=== PATIENT | male | born 2000 | race Caucasian/White ===

== ENCOUNTER 2023-01-10 20:26 | Emergency (ER) | payer OTHER, SELFPAY ==
[2023-01-10 20:28] VITALS: BP 126/62; PULSE 110; RESP 18; TEMP 36.8; O2SAT 99; BMI 27.0
--- NOTE | 2023-01-10 20:39 | EDS_ITS ---
HPI History of Present Illness Chief Complaint: Upper Extremity Injury Detail of Chief Complaint: Injury to right shoulder Informant: patient Narrative Narrative: Patient presents to the emergency department with complaint of injury to the right shoulder. Patient states that he was playing soccer when he fell onto his right shoulder. Patient felt a pop. He is right-hand dominant. Denies any other injuries. [facility] Medical History (Updated 01/10/23 @ 20:[address] Misael Nichole, DO) ACL injury tear Home Medications NK 01/10/23 [History Last Taken Unknown] Allergy/AdvReac Type Severity Reaction Status Date / Time No Known Allergies Allergy Verified 01/10/23 20:31 Social History Smoking Status: Never smoker ROS ROS ED Review of Systems ROS Unobtainable: other Constitutional Constitutional ED: Reports lethargy; Denies chills, fever(s), sweats or weight loss Eyes Eyes: Denies blurry vision, change in vision or diplopia ENT ENT ED: Denies rhinorrhea or sore throat Cardiovascular Cardiovascular: Denies chest pain, orthopnea or racing heartbeat Respiratory/Chest Respiratory/Chest: Denies cough, dyspnea, dyspnea on exertion, orthopnea or sputum Gastrointestinal Gastrointestinal: Denies abdominal pain, diarrhea, nausea or vomiting Genitourinary Genitourinary ED: Denies dysuria, hematuria or urinary frequency Musculoskeletal Musculoskeletal: Reports other Details: Right shoulder injury ; Denies arthralgias, back pain, myalgias or neck pain Integumentary Denies abscess, Abrasions or rash Neurologic Neurologic: Denies headache(s) or weakness Psychiatric Psychiatric: Denies anxiety, depression or suicidal thoughts Endocrine Endocrinology: Denies polydipsia, polyphagia or polyuria Hematologic/Lymphatic Hematologic/Lymphatic: Denies easy bleeding, easy bruising or lymphadenopathy Allergic/Immunologic Allergic/Immunologic ED: Denies mouth swelling, tongue swelling or urticaria EXAM Physical Exam Const Vital Signs: 01/10/23 20:28 Temperature 98.3 F Temperature Source Temporal Pulse Rate 110 H Respiratory Rate 18 Blood Pressure 126/62 H Blood Pressure Mean 83 Pulse Ox 99 Oxygen Delivery Method Room Air Positive well nourished and well developed General Appearance ED: well developed and NAD HEENT Reports TM's clear and moist mucous membranes normocephalic and atraumatic; Negative for trauma or tenderness Tympanic Membrane ED: Yes TM's clear Eyes PERRL and EOMs intact bilaterally General Eye ED: Negative for pale conjunctiva or scleral icterus Neck no lymphadenopathy, supple and no JVD General: Negative for tenderness Chest Wall inspection of chest normal and palpation of chest normal Chest: Negative for tenderness Resp normal respiratory effort and clear to auscultation bilaterally Effort and Inspection: Negative for respiratory distress or pain with movement Auscultation: Negative for rhonchi, wheezes or diminished lung sounds Cardio regular rate, regular rhythm, S1 normal heart sound, S2 normal heart sound and no murmurs Peripheral Pulses: pulses 2+ throughout GI normal to inspection, nondistended, normoactive bowel sounds, soft to palpation, non-tender, non-distended and no masses Back/Spine no CVA tenderness and no thoracic nor lumbar tenderness Extremity Extremity Narrative: Right shoulder-patient has sulcus sign. Decreased ability to abduct the shoulder and limited range of motion. There is a fullness anterior to the glenohumeral joint. He is neurovascular intact distally. No broken skin noted. No significant tenderness over the clavicle. Clinically suspect dislocated shoulder. General Extremety ED: Negative for edema General Extremity: Negative for edema Neuro oriented x3, CN's II-XII intact bilaterally, no sensory deficits noted and gait normal Sensorium / Orientation: awake, alert, oriented to person, oriented to place and oriented to time Motor Exam: strength 5/5 throughout and strength abnormal Psych mental status grossly normal Skin no rashes or lesions noted and no wounds MDM MDM MDM Narrative Medical decision making narrative: Clinically suspect dislocated shoulder. X-rays will be obtained. X-rays on my interpretation show a right shoulder dislocation. Patient was offered sedation versus attempting to reduce it without sedation using the Milch maneuver. Patient wanted to try without sedation. I was able to use the Milch maneuver and gently abduct and raise his arm and patient did have easy reduction of the glenohumeral dislocation. Repeat x-rays obtained interpreted by myself as good reduction without evidence of fractures. Official report from radiology pending. Patient will be given a sling. Patient will be given referral to orthopedics for follow-up. Radiography Diagnostic Testing: Patient had 2 view x-rays of right shoulder obtained that showed an anterior- inferior shoulder dislocation. No fracture noted on my interpretation. Discharge Plan Triage Chief Complaint: Upper Extremity Injury ED Provider: Misael Nichole Dx/Rx/DC Orders Clinical Impression: Closed dislocation of right shoulder Instructions: ED Dislocation: Shoulder (Reduced) Prescriptions: No Action NK Primary Care Provider: Titus Armstrong Referrals: Holden Andres MD [Med Staff - Active Staff] - 3-5 Days NOT,DEFINED [Non-Staff] - Disposition Disposition: Home, Self Care
--- NOTE | 2023-01-10 20:40 | RAD_ITS ---
We are attempting to reach an attending provider to discuss findings. An addendum with communication details will be sent when the communication is complete. INDICATION: injury EXAMINATION/TECHNIQUE: X-RAY - RIGHT XR Shoulder Min 2 Views 2 VIEWS COMPARISON: No relevant prior comparison studies available. FINDINGS: SOFT TISSUES: No soft tissue swelling or gas. No radiopaque foreign body. BONES/JOINTS: Anterior shoulder dislocation. No appreciable fracture exemplified on provided images, scapular Y views. Acromio clavicular joint is normal in appearance. No sclerotic or destructive changes observed. Visualized right lung is clear. RAD/Shoulder min 2 Views IMPRESSION: Right, anterior glenohumeral joint dislocation. No visible fracture. Recommend repeat shoulder x-rays to include axillary Y-view following relocation. Electronically Signed: David Everett DO at 21:06 EDT ,
--- NOTE | 2023-01-10 21:00 | RAD_ITS ---
INDICATION: post reduction EXAMINATION/TECHNIQUE: X-RAY - RIGHT XR Shoulder Min 2 Views 2 VIEWS COMPARISON: Right shoulder prereduction x-rays January 10, 2023. FINDINGS: SOFT TISSUES: No soft tissue swelling or gas. No radiopaque foreign body. No abnormal soft tissue calcifications. BONES/JOINTS: Normal glenohumeral alignment. No fracture visible on the provided scapular Y views. Preservation of the joint space and no degenerative bony proliferative changes. No sclerotic or destructive changes observed. RAD/Shoulder min 2 Views IMPRESSION: No abnormality within limits of the exam. Electronically Signed: David Everett DO at 21:34 EDT ,
== END 2023-01-10 21:18 | disposition home or self-care (01) ==
LOC: ED 21:03
PROVIDERS: Emergency Provider Emergency Medicine; PCP Family Medicine; Visit Provider Emergency Medicine
DX: S43.014A Anterior dislocation of right humerus, initial encounter (principal); S43.034A Inferior dislocation of right humerus, initial encounter; W18.30XA Fall on same level, unspecified, initial encounter; Y93.66 Activity, soccer
CPT/HCPCS: 23650; 73030; 99282